=== PATIENT | female | born 1960 | race Caucasian/White ===

== ENCOUNTER 2016-03-22 12:30 | Emergency (ER) | payer OTHER ==
[2016-03-22] MEDS ORDERED: HYDROMORPHONE HCL 1 MG/ML SYRINGE ONE (12:51)
[2016-03-22] MEDS ORDERED: SODIUM CHLORIDE 0.9% 1,000 ML ONE (12:52)
[2016-03-22] MEDS ORDERED: ONDANSETRON 4 MG/2ML 2 ML VIAL ONE (12:52)
[2016-03-22 13:05] LABS: ABSOLUTE NEUTROPHIL COUNT 6.7 K/mm3 (1.8-7.7); BASO # 0.1 K/mm3 (0.0-0.2); BASO % 0.8 % (0.2-1.0); EOS # 0.2 (0.0-0.5); EOS % 1.5 % (0.9-2.9); HEMATOCRIT 44.2 % (37.0-47.0); HEMOGLOBIN 14.5 gm/l (12.0-16.0); IMM NEUT # 0.1 K/mm3 (0-0.2); IMM NEUT% 0.5 % (0-1); LYMPH # 2.9 (1.0-4.8); LYMPH % 27.8 % (15-45); MEAN CELL VOLUME 91.9 fl (81.0-99.0); MEAN CORPUSCULAR HEMOGLOBIN 30.1 pg (27.0-31.0); MEAN CORPUSCULAR HGB CONC 32.8 g/dl (33.0-37.0); MEAN PLATELET VOLUME 9.5 fl (7.4-10.4); MONO # 0.7 (0.0-0.8); MONO % 6.3 % (4-12); NEUT % 63.1 % (43-75); PLATELET COUNT 349 K/mm3 (130-400); RED CELL DISTRIBUTION WIDTH 12.7 % (11.5-14.5)
[2016-03-22 13:14] LABS: ALB/GLOB RATIO 1.3 (>1.0); ALBUMIN 4.2 gm/dL (3.5-5.7); CALCIUM 9.4 mg/dL (8.6-10.3)
[2016-03-22] MEDS ORDERED: METHYLPRED SOD SUCCINATE 125 MG VIAL ONE (13:20)
--- NOTE | 2016-03-22 13:30 | RAD ---
Name: ALEXIS SALAMANCA Exam: Single view chest Comparison: None Clinical history: Trauma Findings: Single view of the chest is submitted. Heart, mediastinum and hilar structures are normal. There is no failure, infiltrate, pleural effusion or pneumothorax. There is an acute fracture dislocation of the right glenohumeral joint. Impression: 1. Acute fracture dislocation of the right glenohumeral joint 2. No acute cardiopulmonary process
--- NOTE | 2016-03-22 13:31 | RAD ---
Name: ALEXIS SALAMANCA Exam: Right shoulder Comparison: None Clinical history: Trauma Findings: 2 views right shoulder are submitted. There is comminuted fracture of the right humeral head. There is complete anterior inferior dislocation of the main fragment of the humeral head. Acromioclavicular and coracoclavicular joints are normal. The remainder the bones and soft tissues are unremarkable. Impression: Acute comminuted displaced fracture of the right humeral head with dislocation of the right glenohumeral joint.
[2016-03-22] MEDS ORDERED: PROPOFOL 20 ML IV ONE (14:07)
--- NOTE | 2016-03-22 14:10 | RAD ---
Name: ALEXIS SALAMANCA Exam: Cervical spine Comparison: 08/15/2015 Clinical history: Trauma Findings: Lateral and swimmer's lateral view of the cervical spine are submitted. A complete cervical spine series is not submitted. The odontoid on the lateral is intact. Predental space is normal. The epiglottis is normal size. Prevertebral soft tissues are thickened. Old nuchal calcification is present at C5. There is a slight anterolisthesis of C3 on C4 which is similar to the prior exam. There is a grade 1 retrolisthesis of C5 with respect to C4 and C6 unchanged from the prior. Degenerative disc disease is present at C4-5 and C5-6 and also C6-7. C7-T1 interspace is not visualized on this exam. Impression: 1. Incomplete cervical spine series 2. Degenerative disc disease C4-5, C5-6 and C6-7 3. Abnormal alignment at C3-4, C4-5 and C5-6 unchanged from the prior exam 4. Nonvisualization of C7-T1 5. Prevertebral soft tissue swelling. If further evaluation is clinically warranted, CT should be performed.
--- NOTE | 2016-03-22 14:49 | RAD ---
Name: ALEXIS SALAMANCA Exam: Right shoulder Clinical history: Dislocation reduction Findings: 2 views of the right shoulder are submitted. There is a comminuted multi part right humeral head fracture. Moderately displaced fracture persists however fracture fragment alignment is markedly improved. The glenohumeral dislocation has been corrected. Acromioclavicular and coracoclavicular joints are normal. Impression: 1. Comminuted displaced right humeral head fracture with fracture fragment alignment markedly improved from the prior 2. Interval reduction of the right glenohumeral dislocation
[2016-03-22 15:15] LABS: HIV-1/2 RAPID SCREEN NEGATIVE (NEGATIVE)
--- NOTE | 2016-03-22 19:07 | PROCNOTE ---
ALEXIS SALAMANCA [id number] ORTHOPEDIC CONSULTATION DATE OF CONSULTATION: March 22, 2016 This is a duplication of the same consultation.
--- NOTE | 2016-03-22 19:07 | CONS ---
ALEXIS SALAMANCA [id number] ORTHOPEDIC CONSULTATION DATE OF CONSULTATION: March 22, 2016 HISTORY OF PRESENT ILLNESS: Alexis Snyder is a 55-year-old left-handed female seen at the request of the emergency department physician, Dr. Briggs, for evaluation and treatment of a fracture dislocation of the right shoulder. Patient was examined with her permission and in the presence of her family. Imaging studies were reviewed. There were no medical records to review. CURRENT COMPLAINT: Patient has a painful fracture dislocation of the right shoulder. She is unable to move her shoulder. She has numbness and tingling of the fingers of her hand and has difficulty moving her digits. 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 She is not sure if it was a contusion by the horse or the actual fall that cause her shoulder injury. She did not hit her head and there was no loss of consciousness. After the traumatic incident, she was unable to move her right shoulder. She was then taken to [facility] Emergency Department where x-rays were taken of her right shoulder and cervical spine. She had also been complaining of some neck pain along the right side of her neck into the trapezius. After Dr. Briggs identified the fracture dislocation, he contacted me for orthopedic consultation. The patient was then evaluated in the presence of her daughters and physical examination was carried out and our treatment plan was presented to the patient and to her family. PAST MEDICAL HISTORY: Hypertension. PAST SURGICAL HISTORY: 1. Hysterectomy. 2. Breast biopsies times two. SOCIAL HISTORY: She does not smoke and she drinks alcohol occasionally. 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 MEDICATIONS: 1. Antihypertensive medications. 2. Female hormones. ALLERGIES: NO KNOWN DRUG ALLERGIES. PHYSICAL EXAMINATION: GENERAL: The patient is a well nourished, well developed female who is cooperative with the examination. VITAL SIGNS: She is 5 feet 3 inches tall, weight 228 pounds. EXTREMITIES: Focused examination of the right shoulder indicates the presence of some soft tissue swelling and a loss of normal contours of the shoulder. She is unable to move her shoulder. She has exquisite tenderness to palpation globally about the shoulder. She has grossly intact neurovascular status with some hypoesthesia on the palmar surface of all digits of her right hand. She also has difficulty moving her fingers. She also has a mild degree of hypoesthesia on the dorsum of the hand. She has normal sensation proximal to that area. She has good peripheral pulses. Examination of the cervical spine shows no evidence of any deformity. There is no tenderness to palpation on either side of the neck. She has a mild degree of tenderness over the right trapezius muscle prior to the reduction. Range of motion is limited in right rotation. RADIOLOGY: Imaging studies were reviewed. The studies indicate the presence of a fracture dislocation of the right shoulder with what appears to be a comminuted fracture and an anterior dislocation. We also note that the cervical spine x-ray shows some degenerative changes and some osteophytic spurring. DIAGNOSTIC IMPRESSION: 1. Fracture dislocation right shoulder. 2. Degenerative changes cervical spine. PLAN: We discussed with the patient the various treatment options including a closed reduction of the right shoulder under conscious sedation in the emergency department. The procedure itself has been explained to her in detail along with the expected benefits, potential risks and complications and alternative methods of treatment. She appears to understand and requests we proceed with the procedure. PROCEDURE: After informed consent was obtained from the patient, conscious sedation was administered by Dr. Briggs using propofol. We then performed our closed reduction. It was felt we had a satisfactory reduction. The shoulder immobilizer was applied and post reduction x-rays were taken that indicated appropriate reduction of the dislocation and also reduction of the major fragment. The patient was given full instructions for followup care in the presence of her daughters and her mother who was also present at the hospital. We advised her that she does not remove the shoulder immobilizer. 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 She should also sleep with the head of her bed elevated about 45 degrees. She was given a prescription for pain medication as written by Dr. Briggs and was instructed to contact the orthopedic clinic on Thursday to schedule followup treatment regarding her injury. I have also advised her that her treating physicians at the orthopedic clinic may choose to order more testing, including additional imaging studies. The patient understands and is comfortable with this decision. She was discharged from the hospital emergency department in satisfactory and stable condition.
== END 2016-03-22 16:01 | disposition home or self-care (01) ==
LOC: ED 12:30
DX: S42.91XA Fracture of right shoulder girdle, part unspecified, initial encounter for closed fracture (principal); W55.19XA Other contact with horse, initial encounter; Y93.K3 Activity, grooming and shearing an animal
CPT/HCPCS: 87389; 86703; 85025; 80053; 87340; 86803; 72020; 71010; 73030 ×2; 96375; 99284 ×2; 96374; 99156 ×2; J1170; J2930; J2405; J7030